=== PATIENT | male | born 1980 | race African-American/Black ===

== ENCOUNTER 2017-06-12 17:38 | Emergency (ER) | payer MEDICAID ==
[~2017-06-12] VITALS: Ht 172.7 cm; Wt 75.0 kg
[~2017-06-12 17:38] MED LIST: zoloft
[2017-06-12] MEDS ORDERED: ARIP2TAB3 PO (17:42)
[2017-06-12] MEDS ORDERED: OLAN2.5T3 PO (17:42)
[2017-06-12] MEDS ORDERED: HALOPERIDOL LACTATE 5MG/ML VIAL IM ONE (18:30)
[2017-06-12] MEDS ORDERED: LORAZEPAM 2MG/ML CPJ IM ONE ×2 (18:30→19:00)
[2017-06-12] MEDS ORDERED: SODIUM CHLORIDE 0.9% 1,000 ML IV ONE (18:33)
[2017-06-12 19:44] LABS: BASOPHILS % 0.7 % (0.0-2.0); EOSINOPHILS % 0.3 % (0.0-5.0); HEMATOCRIT. 43.3 % (42.0-52.0); HEMOGLOBIN. 14.4 g/dL (14.0-18.0); LYMPHOCYTES % 40.4 % (20.0-50.0); MEAN CORPUSCULAR HEMOGLOBIN 30.6 pg (28.0-32.0); MEAN CORPUSCULAR VOLUME 91.8 fL (80.0-94.0); MEAN PLATELET VOLUME 8.6 fl (7.4-10.4); MONOCYTES % 5.8 % (2.0-8.0); NEUTROPHILS % 52.8 % (40.0-76.0); PLATELET 252 x1000/uL (130-400); RED BLOOD CELL COUNT 4.71 mill/uL (4.7-6.1); RED CELL DISTRIBUTION WIDTH 13.5 % (11.6-14.6)
[2017-06-12 19:49] LABS: CHLORIDE 104 mEq/L (98-107)
[2017-06-12 19:53] LABS: ETHANOL BLOOD < 10 mg/dL
[2017-06-12 20:09] LABS: CREATINE KINASE 1147 IU/L (39-308)
[2017-06-12 23:24] LABS: CLARITY URINE CLOUDY (CLEAR); COLOR URINE YELLOW (YELLOW); KETONES URINE NEGATIVE (NEGATIVE); LEUKOCYTE ESTERASE URINE NEGATIVE (NEGATIVE); NITRITE URINE NEGATIVE (NEGATIVE); OCCULT BLOOD URINE 2+ (NEGATIVE); PH URINE 7.5 (4.5-8.0); PROTEIN URINE NEGATIVE (NEGATIVE); SPECIFIC GRAVITY URINE 1.015 (1.005-1.030)
[2017-06-12 23:35] LABS: *BARBITURATES SCREEN URINE NEGATIVE (NEGATIVE); *COCAINE SCREEN URINE NEGATIVE (NEGATIVE); CANNABINOID URINE SCREEN PRESUMTIVE POSITIVE (NEGATIVE); METHADONE URINE SCREEN NEGATIVE (NEGATIVE); OPIATES URINE SCREEN NEGATIVE (NEGATIVE); PHENCYCLIDINE URINE SCREEN PRESUMTIVE POSITIVE (NEGATIVE)
[2017-06-12 23:36] LABS: *AMPHETAMINES SCREEN URINE NEGATIVE (NEGATIVE); *BENZODIAZEPINES SCREEN URINE NEGATIVE (NEGATIVE)
[2017-06-13 04:00] VITALS: BP 133/79
== END 2017-06-13 04:43 | disposition home or self-care (01) ==
LOC: ER 17:43
DX: T40.991A Poisoning by other psychodysleptics [hallucinogens], accidental (unintentional), initial encounter (principal); F19.10 Other psychoactive substance abuse, uncomplicated; G92 Toxic encephalopathy; R45.1 Restlessness and agitation; F91.8 Other conduct disorders; Z78.1 Physical restraint status; F10.10 Alcohol abuse, uncomplicated; Y90.9 Presence of alcohol in blood, level not specified; Y92.098 Other place in other non-institutional residence as the place of occurrence of the external cause; F12.90 Cannabis use, unspecified, uncomplicated
CPT/HCPCS: 36415; 80053; 80305; 80307; 80329; 81003; 82550; 85025; 93005; 96360; 96372; 99285; G0482; J1630; J2060; J7030; Z7610